=== PATIENT | female | born 1995 | race Caucasian/White ===

== ENCOUNTER 2019-09-27 07:11 | Outpatient (CLI) | payer OTHER | END 2019-09-27 07:12 | disposition critical access hospital (66) | LOC: EMS 07:11 | PROVIDERS: ATTEND Surgery | DX: R41.3 Other amnesia (principal); V48.5XXA Car driver injured in noncollision transport accident in traffic accident, initial encounter | CPT/HCPCS: A0425; A0429 ==

== ENCOUNTER 2019-09-27 07:47 | Emergency (ER) | payer OTHER ==
[2019-09-27] MEDS ORDERED: ACETAMINOPHEN 325 MG TABLET PO STA (07:59)
[2019-09-27] MEDS ORDERED: IBUPROFEN 600 MG TABLET PO STA (07:59)
[2019-09-27] MEDS ORDERED: ONDANSETRON ODT 4 MG TABLET TL STA (08:21)
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
[2019-09-27 08:34] LABS: BASOPHILS % (AUTO) 0.4 %; EOSINOPHILS % (AUTO) 0.2 %; HGB - HEMOGLOBIN 14.4 g/dL (12.0-16.0); LYMPHOCYTES # (AUTO) 1.1 10^3/uL (1.5-3.5); LYMPHOCYTES % (AUTO) 12.1 %; MEAN CORPUSCULAR HEMOGLOBIN 34.4 pg (27.0-31.0); MEAN CORPUSCULAR HGB CONC 34.6 g/dL (32.0-36.0); MEAN CORPUSCULAR VOLUME 99.3 fL (81.0-99.0); MEAN PLATELET VOLUME 9.3 fL (7.9-10.8); MONOCYTES # (AUTO) 0.6 10^3/uL (0.0-1.0); MONOCYTES % (AUTO) 6.1 %; NEUTROPHILS # (AUTO) 7.5 10^3/uL (1.5-6.6); NEUTROPHILS % (AUTO) 80.9 %; PLT - PLATELET COUNT 224 10^3/uL (130-450); RED BLOOD COUNT 4.19 10^6/uL (4.20-5.40); RED CELL DISTRIBUTION WIDTH 12.2 % (12.0-15.0); WHITE BLOOD COUNT 9.2 x10^3/uL (4.8-10.8)
[2019-09-27 08:45] LABS: ALBUMIN/GLOBULIN RATIO 2.1 (1.0-2.2); BILIRUBIN,TOTAL 0.6 mg/dL (0.2-1.0); CREATININE 0.7 mg/dL (0.4-1.0); TOTAL PROTEIN 7.4 g/dL (6.7-8.2)
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
[2019-09-27 10:47] VITALS: BP 107/62
== END 2019-09-27 10:46 | disposition home or self-care (01) ==
LOC: ED 07:47
DX: S00.81XA Abrasion of other part of head, initial encounter (principal); S60.512A Abrasion of left hand, initial encounter; S60.511A Abrasion of right hand, initial encounter; T14.8XXA Other injury of unspecified body region, initial encounter; V48.0XXA Car driver injured in noncollision transport accident in nontraffic accident, initial encounter; Y92.410 Unspecified street and highway as the place of occurrence of the external cause; F10.920 Alcohol use, unspecified with intoxication, uncomplicated; F17.200 Nicotine dependence, unspecified, uncomplicated
CPT/HCPCS: 36415; 70450; 80053; 80320; 82550; 83690; 85025; 99284; A9270; Q0162

== ENCOUNTER 2021-10-05 15:28 | Outpatient (CLI) | payer BC | END 2021-10-05 15:29 | disposition short-term general hospital (02) | LOC: EMS 15:28 | DX: M54.2 Cervicalgia (principal); M25.511 Pain in right shoulder; V43.52XA Car driver injured in collision with other type car in traffic accident, initial encounter; Y92.414 Local residential or business street as the place of occurrence of the external cause | CPT/HCPCS: A0425; A0429 ==

== ENCOUNTER 2023-10-09 10:59 | Outpatient (CLI) | payer OTHER ==
--- NOTE | 2023-10-10 09:00 | Mammography Report ---
BILATERAL FIRST EVER DIGITAL SCREENING MAMMOGRAM 3D/2D WITH EXAGGERATED CC: 10/09/2023 CLINICAL: Baseline exam. Routine screening. Family history of breast cancer. No prior exams were available for comparison. Both breasts are extremely dense, which lowers the sensitivity of mammography (category d />75% gland ular tissue). No significant masses, calcifications, or other findings are seen in either breast. IMPRESSION: NEGATIVE There is no mammographic evidence of malignancy. A 1 year screening mammogram is recommended. Based on Tyrer-Cuzick model (a risk assessment model), the patient's lifetime risk is 28.0% and her 1 0 year risk is 1.3%. If a patient has an elevated risk, a more comprehensive evaluation should be con sidered and/or a referral to a genetic counselor. The [place] [employer], [place] [employer], and NCCN Guidelines advise the consideration of Breast MRI as an adjunct to screening mammog omaira in patients whose "Lifetime risk to develop breast cancer" is 20% or higher. This exam was interpreted at Station ID: [id number]. NOTE: For mammograms, a report in lay terms will be sent to the patient. Approximately 15% of breast malignancies will not be visualized mammographically. In the management of a palpable breast mass, a negative mammogram must not discourage biopsy of a clinically suspicious lesion. Electronically Signed By: Jina roberts/apple:10/09/2023 15:44:11 ACR BI-RADS Category 1: Negative 3341F PARENCHYMAL PATTERN: (VD) - The breast(s) demonstrate(s) extremely dense parenchyma, limiting the sen sitivity of mammography. BI-RADS CATEGORY: (1) - 1 RECOMMENDATION: (ANNUAL) - Recommend routine annual screening mammography. [id number] 1 year screening LATERALITY: (B)
== END 2023-10-09 11:00 | disposition home or self-care (01) ==
LOC: DI.S 10:59
PROVIDERS: ATTEND Nurse Practitioner Acute Care
DX: Z12.31 Encounter for screening mammogram for malignant neoplasm of breast (principal); R92.30 Dense breasts, unspecified; Z80.3 Family history of malignant neoplasm of breast

== ENCOUNTER 2023-10-26 07:42 | Outpatient (CLI) | payer OTHER ==
[~2023-10-26 07:42] MED LIST: GADOTERATE MEGLUMINE 7.5 MMOL/15 ML VIAL ONE
[2023-10-26] MEDS: GADOTERATE MEGLUMINE 7.5 MMOL/15 ML VIAL IVP ONE (09:59)
--- NOTE | 2023-10-27 09:51 | MRI Report ---
SCREENING BREAST MRI OF BOTH BREASTS: 10/26/2023 CLINICAL: Sister with breast cancer. High risk screening. Comparison: 10/09/2023 PROCEDURE: MR BREAST BILATERAL WITH CAD INDICATIONS: Breast cancer, invasive, stage I/II/III, initial workup TECHNIQUE: The patient was placed prone in a dedicated breast imaging coil. Precontrast axial STIR and 3D FLASH without fat saturation sequences were obtained. Both before and after bolus injection of contrast, sequential 1-minute axial 3D FLASH with fat saturation sequences for 3 time points, with subtraction images and maximum intensity projections (MIPs) generated. Delayed sagittal FLASH images with fat sa turation were also obtained. Computer-aided detection, including computer algorithm analysis of MRI image data for lesion detectio n and characterization, pharmacokinetic analysis, with further physician review for interpretation, w as performed. COMPARISON: None. FINDINGS: Image quality: Diagnostic. The breasts are extremely dense. There is moderate background parenchym al enhancement. Right breast: No suspicious mass, non-mass enhancement, or focus. Left breast: No suspicious mass, non-mass enhancement, or focus Miscellaneous: No suspicious findings in the partially visualized upper abdomen or anterior mediasti num. There are no pathologic lymph nodes by size criteria within the field of view. IMPRESSION: NEGATIVE No suspicious findings in either breast. Consider continued mammographic surveillance imaging and queen pplemental MRI screening. BIRADS 1 COMMENT: The imaging literature indicates that a negative contrast breast MRI examination has a high sensitivity and a moderate specificity for detecting and excluding invasive carcinomas to a detection threshold of 3-5 mm; nonetheless, appropriate clinical and mammographic follow-up are recommended. MRI is not sensitive for detecting DCIS (ductal carcinoma in situ) and may not detect large invasive neoplasms that show only minimal enhancement such as mucinous carcinoma. If there are suspicious lidia cifications or clinically worrisome palpable masses, then biopsy should still be considered. Invasiv e neoplasms can be hidden by co-existent and benign enhancement caused by mastitis, hormone therapy e ffects, radiation therapy, , and recent biopsy or surgery. False positive examinations can occur in a number of circumstances, including breasts that have recently been subject to invasive pro cedures and those that contain atypical ductal hyperplasia, hormonally stimulated glandular tissue, f at necrosis, or radial scars. This exam was interpreted at Station ID: [id number]. Electronically Signed By: Ra Smart M.D. lc/:10/26/2023 14:41:16 letter sent: No_Letter ACR BI-RADS Category 1: Negative 3341F BI-RADS CATEGORY: (1) - 1 Mammo and MR [id number] return to screening LATERALITY: (B)
== END 2023-10-26 07:43 | disposition home or self-care (01) ==
LOC: DI 07:42
PROVIDERS: ATTEND Nurse Practitioner Acute Care
DX: Z12.39 Encounter for other screening for malignant neoplasm of breast (principal); Z80.3 Family history of malignant neoplasm of breast